=== PATIENT | male | born 1955 ===

== ENCOUNTER → 2019-07-17 | Emergency (ER) | payer OTHER ==
[~2019-07-17] VITALS: Ht 167.6 cm; Wt 89.8 kg
[~2019-07-17] MED LIST: BENADRYL50 MG PO; HORIZANT300 MG PO; HYDROCHLOROTHIA25 MG PO; ISOSORBIDE MONO60 MG PO; LIPITOR80 MG PO; NITROGLYCERIN0.4 MG SL; NORFLEX100 MG PO; PEPCID40 MG PO; PLAVIX75 MG PO; RELAFEN500 MG PO; TOPROL XL50 M1 PO; ULTRAM50 MG PO; ZESTRIL10 M1 PO
== END | disposition home or self-care (01) ==
LOC: ER 00:24
DX: T78.1XXA Other adverse food reactions, not elsewhere classified, initial encounter (principal); L50.8 Other urticaria; X58.XXXA Exposure to other specified factors, initial encounter

== ENCOUNTER 2020-01-01 18:58 | Emergency (ER) | payer OTHER ==
[~2020-01-01] VITALS: Ht 167.6 cm; Wt 90.7 kg
[2020-01-01] MEDS ORDERED: ASPIR 8181 MG (19:21)
== END 2020-01-02 12:55 | disposition home or self-care (01) ==
LOC: ER 18:58
DX: I82.5Z2 Chronic embolism and thrombosis of unspecified deep veins of left distal lower extremity (principal); I87.2 Venous insufficiency (chronic) (peripheral); M79.605 Pain in left leg